=== PATIENT | female | born 1945 | race Caucasian/White ===

== ENCOUNTER 2016-12-21 21:19 | Emergency (ER) | payer MEDICARE, OTHER ==
[~2016-12-21] VITALS: Ht 167.6 cm; Wt 70.0 kg
[~2016-12-21 21:19] MED LIST: CALC-137 PO
[2016-12-21 21:24] VITALS: BP_SYST 134; PULSE 88; RESP 16; TEMP 98.2; O2SAT 96
--- NOTE | 2016-12-21 21:49 | PD ---
HPI Chief Complaint: Injury Time Seen by Provider: 21:48 Travel History International Travel<30 days: No Contact w/Intl Traveler<30days: No Traveled to known affect area: No History of Present Illness HPI Patient comes in for evaluation of right middle finger injury that occurred shortly prior to arrival. Patient states she got her finger trapped by her garage door crushing it. Patient states she applied ice to the prior coming to the emergency department. Patient pain over the distal tip of the right middle finger without radiation. Pain is throbbing aching like in nature. Pain is worse with palpation. Patient is uncertain of her last tetanus shot. PFSH Past Medical History Anemia: Yes Cancer: Yes (R BREAST CA WITH MASTECTOMY, CHEMO & RADIATION, 1995, 1998) Cardiovascular Problems: Yes (IRREGULAR HEARTBEAT, PVC'S) Diabetes: No Endocrine: No Genitourinary: No Hepatitis: No Hiatal Hernia: No Immune Disorder: No Medical other: Yes (HX OF ANEMIA, R ARM LYMPHEDEMA, ) Musculoskeletal: Yes (BACK PROBLEMS, HX OF HNP) Neurologic: No Psychiatric: No Respiratory: No Immunizations Current: Yes Thyroid Disease: No Tetanus Vaccination: < 5 Years Past Surgical History Abdominal Surgery: Yes (APPENDECTOMY 1972) AICD: No Gynecologic Surgery: Yes (R SALPINGO OOPHORECTOMY 1972) Joint Replacement: No Pacemaker: No Thoracic Surgery: Yes (R BREAST LUMPECTOMY 1994,BILATERAL MASTECTOMY 1998 ) Other Surgery: Yes Social History Alcohol Use: Yes (RARELY) Tobacco Use: No Substance Use: No Allergies-Medications (Allergen,Severity, Reaction): Coded Allergies: Darvon (Verified Allergy, Severe, nausea, 12/21/16) Reported Meds & Prescriptions Reported Meds & Active Scripts Active Naprosyn (Naproxen) 500 Mg Tab 500 Mg PO Q12HR PRN Keflex (Cephalexin) 500 Mg Cap 500 Mg PO Q12H 10 Days Reported Calcium 600 (Calcium Carbonate) Tab 1 Tab PO DAILY 30 Days + VITAMIN D Review of Systems Except as stated in HPI: all other systems reviewed are Neg Physical Exam Narrative GENERAL: Well-developed, well nourished, in no acute distress, and non-ill appearing. SKIN: Warm and dry. Laceration distal tip right middle finger. Neurovascularly intact HEAD: Atraumatic. Normocephalic. EYES: Pupils equal and round. EOMI. No scleral icterus. No injection or drainage. ENT: No nasal bleeding or discharge. Mucous membranes pink and moist. NECK: Trachea midline. Supple. No nuclear rigidity. CARDIOVASCULAR: Capillary refill less than 2 seconds. RESPIRATORY: No accessory muscle use. No respiratory distress. MUSCULOSKELETAL: No obvious deformities. No clubbing. No cyanosis. No edema. Full range of motion. NEUROLOGICAL: Awake and alert. No obvious cranial nerve deficits. Motor grossly within normal limits. Normal speech. PSYCHIATRIC: Appropriate mood and affect; insight and judgment normal. Data Data Last Documented VS Vital Signs Date Time Temp Pulse Resp B/P Pulse Ox O2 Delivery O2 Flow Rate FiO2 12/21/16 21:24 98.2 88 16 134/ 96 Room Air Orders Finger ([id number]) (12/21/16 ) Tetanus/Diphtheria Tox Adult (Tetanus/Di (12/21/16 22:00) Bupivacaine Pf 0.5% Inj (Marcaine Pf 0.5 (12/21/16 22:00) Lidocaine 1% Inj (50 Ml) (Xylocaine 1% I (12/21/16 22:00) Splint Or Brace Apply/Monitor (12/21/16 23:18) Finger Splint (12/21/16 ) Ibuprofen (Motrin) (12/21/16 23:30) Cephalexin (Keflex) (12/21/16 23:30) Naproxen (Naprosyn) (12/21/16 23:45) MDM Medical Decision Making Medical Screen Exam Complete: Yes Emergency Medical Condition: Yes Differential Diagnosis Laceration, abrasion, fracture, open fracture, other Narrative Course The patient sustained a fracture. The distal extremity appears neurovascularly intact, without evidence of neurovascular injury nor compartment syndrome. Tendon exam also was intact. The effected limb was splinted. The patient was discharged on pain medication along with fracture and splint care instructions and given warnings for vascular compromise. The patient is to follow up with hand surgeon. The patient agrees with plan. There was no evidence to suggest foreign bodies. Visual and tactile were unremarkable without evidence of foreign body at this time. Radiographic exams showed tuft fracture without evidence of foreign body. There was no evidence of neurovascular injury. The patient had a normal distal vascular exam, and had full normal motor and sensory exams. There was also no evidence or tendon injury , with normal distal full range of motions, flexion, extension, abduction, adduction and opponens. There was no evidence of local joint space involvement at this time. The patient was irrigated with copious sterile normal saline and primary repair was performed. Please see procedure note. The patient was given signs and symptom warnings for infection, such as increasing pain, redness, swelling, associated heat, pus or fever. The patient was warned of possible unseen foreign body and instructed to return immediately if signs or symptoms develop. The patient was given instructions for timely follow up with hand surgeon the patient agreed with plan of care. Patient in no obvious distress upon re-evaluation. All pertinent Radiology result(s) discussed with patient/family. Patient was asked if they wanted to speak to my attending, which the patient did not wish to do at this time. Any questions/concerns in reference to patient diagnosis/condition discussed and clarified prior to patient's discharge. Reinforced sheer importance of close follow up with hand surgeon. Instructed patient to return to ED immediately, if symptoms return/worsen. Pt showed understanding of above instructions. Further instructions and recommendations were detailed in discharge paperwork. Pt ambulated without difficulty out of ED at discharge. Procedures Procedure Narrative LACERATION REPAIR LOCATION: Distal phalanx right middle finger LENGTH: Approximately 1.5 cm in total length NUMBER OF STITCHES/JORGE: 3 simple interrupted REPAIR: Verbal consent was obtained. The area of the laceration was cleaned and prepped. Digital block was performed using a mixture of lidocaine without epi and Marcaine without epi. The wound was copiously irrigated and explored without evidence of foreign body, bony involvement, ligament injury, tendon injury, or neurovascular injury. The wound was closed using 5-0 Vicryl. This was a single layer repair. A sterile dressing was applied by nurse. The patient was advised to keep the affected area as clean and dry as possible using soap and water. There were no complications. Patient tolerated the procedure well. Diagnosis Primary Impression: Open fracture of finger of right hand Qualified Code: S62.609B - Open fracture of finger of right hand, initial encounter Referrals: Trace López MD Patient Instructions: Care For Your Absorbable Stitches (ED), Finger Fracture ( ED), Finger Laceration (ED), General Instructions, Splint Care (GEN) Additional Instructions: Follow-up with hand surgery in 24-48 hours. Take all medication as prescribed. Return to the emergency department if symptoms get worse. Med/Other Pt SpecificInfo: Prescription(s) given Scripts Naproxen (Naprosyn)500 Mg [id number] Mg PO Q12HR PRN (PAIN SCALE 1 TO 10) #14 TAB Ref 0 Prov:Marti Templeton MD 12/21/16 Cephalexin (Keflex)500 Mg [id number] Mg PO Q12H 10 Days Ref 0 Prov:Marti Templeton MD 12/21/16 Disposition: 01 DISCHARGE HOME Condition: Stable Claudy Banegas Dec 21, 2016 21:49
[2016-12-21] MEDS ORDERED: LIDOCAINE HCL 1% 50 ML VIAL INFIL ONE (22:00)
[2016-12-21] MEDS ORDERED: BUPIVACAINE HCL PF 0.5% 10 ML VIAL INFIL ONE (22:00)
[2016-12-21] MEDS ORDERED: TETANUS/DIPHTHERIA TOXOID ADULT 0.5 ML VIAL IM ONE (22:00)
[2016-12-21] MEDS ORDERED: CEPH-460 PO (23:22)
[2016-12-21] MEDS ORDERED: NAPR500 PO (23:22)
--- NOTE | 2016-12-21 23:25 | RADRPT ---
EXAM DATE/TIME: 12/21/2016 22:40 [facility] COMPARISON: No previous studies available for comparison. INDICATIONS : Pain from being crushed in garage door. MEDICAL HISTORY : None. SURGICAL HISTORY : None. ENCOUNTER: Initial ACUITY: 1 day PAIN SCORE: 10/10 LOCATION: Right third digit. FINDINGS: 3 views right third digit. There is a comminuted fracture of the tuft of the long finger distal phala nx. 34 volar angulation of the distal fragments. Small osteophytes of the long finger PIP joint. CONCLUSION: Long finger distal phalanx tuft fracture. Kemar Justice MD on December 21, 2016 at 23:22 Board Certified Radiologist. This report was verified electronically.
[2016-12-21] MEDS ORDERED: CEPHALEXIN MONOHYDRATE 500 MG CAP PO ONE (23:30)
[2016-12-21] MEDS ORDERED: IBUPROFEN 600 MG TAB PO ONE (23:30)
[2016-12-21] MEDS ORDERED: NAPROXEN 500 MG TAB PO ONE (23:45)
== END 2016-12-21 23:58 | disposition home or self-care (01) ==
LOC: NEPB 21:19
DX: S62.632B Displaced fracture of distal phalanx of right middle finger, initial encounter for open fracture (principal); Z23 Encounter for immunization; W23.0XXA Caught, crushed, jammed, or pinched between moving objects, initial encounter; Y93.9 Activity, unspecified; Y92.008 Other place in unspecified non-institutional (private) residence as the place of occurrence of the external cause; Y99.9 Unspecified external cause status
CPT/HCPCS: 12001; 73140; 90471; 90714